=== PATIENT | female | born 1960 | race Caucasian/White ===

== ENCOUNTER 2023-02-26 13:17 | Inpatient (IN) | payer MEDICARE, OTHER ==
[2023-02-26] MEDS ORDERED: methylPREDNISolone Sodium Succinate 125 MG/2 ML SDV IVPUSH ONE (15:37)
[2023-02-26] MEDS ORDERED: Albuterol 6.7 GM Inhaler INH PRN (15:38)
[2023-02-26] MEDS: cefTRIAXone 1 GM in Sodium Chloride 0.9% 100 ML IV SCH (16:08)
[2023-02-26] MEDS: Albuterol/Ipratropium 3.0-0.5 MG/3 ML Neb Soln NEB SCH ×2 (16:18→19:59)
[2023-02-26] MEDS: Azithromycin 500 MG in Sodium Chloride 0.9% 250 ML IV SCH (16:45)
[2023-02-26] MEDS: Sodium Chloride 0.9% 10 ML Syringe FLUSH PRN ×2 (16:46→16:47)
[2023-02-26] MEDS: Formoterol/Mometasone 200-5 MCG 8.8 GM Inhaler IH SCH (17:37)
[2023-02-27] MEDS: Albuterol/Ipratropium 3.0-0.5 MG/3 ML Neb Soln NEB SCH ×6 (00:03→20:03)
[2023-02-27] MEDS: Formoterol/Mometasone 200-5 MCG 8.8 GM Inhaler IH SCH ×2 (07:00→19:13)
[2023-02-27] MEDS: Multivitamin Tab PO SCH (08:41)
[2023-02-27] MEDS: Enoxaparin 40 MG/0.4 ML Syringe SUBCUT SCH (08:42)
[2023-02-27] MEDS ORDERED: methylPREDNISolone Sodium Succinate 40 MG/1 ML SDV IVPUSH ONE (13:00)
[2023-02-27] MEDS: Sodium Chloride 0.9% 10 ML Syringe FLUSH PRN ×4 (14:15→16:40)
[2023-02-27] MEDS: cefTRIAXone 1 GM in Sodium Chloride 0.9% 100 ML IV SCH (16:05)
[2023-02-27] MEDS: Azithromycin 500 MG in Sodium Chloride 0.9% 250 ML IV SCH (16:40)
[2023-02-28] MEDS: Albuterol/Ipratropium 3.0-0.5 MG/3 ML Neb Soln NEB SCH ×6 (00:34→20:40)
[2023-02-28 07:28] LABS: ANION GAP 6.5 meq/L (7-15)
[2023-02-28] MEDS: Multivitamin Tab PO SCH (07:41)
[2023-02-28] MEDS: Formoterol/Mometasone 200-5 MCG 8.8 GM Inhaler IH SCH ×2 (07:41→19:39)
[2023-02-28] MEDS ORDERED: methylPREDNISolone Sodium Succinate 40 MG/1 ML SDV IVPUSH ONE ×2 (09:00→12:45)
[2023-02-28] MEDS: Enoxaparin 40 MG/0.4 ML Syringe SUBCUT SCH (10:11)
[2023-02-28] MEDS: Sodium Chloride 0.9% 10 ML Syringe FLUSH PRN ×3 (13:31→20:40)
[2023-02-28] MEDS: ALPRAZolam 0.25 MG Tab PO PRN (15:41)
[2023-02-28] MEDS ORDERED: Azithromycin 500 MG in Sodium Chloride 0.9% 250 ML IV SCH (19:00)
[2023-02-28] MEDS ORDERED: Azithromycin 500 MG Vial ONE (19:18)
[2023-02-28] MEDS ORDERED: cefTRIAXone 1 GM in Sodium Chloride 0.9% 100 ML IV SCH (20:00)
[2023-02-28] MEDS ORDERED: cefTRIAXone 1 GM Vial ONE (20:25)
[2023-03-01] MEDS: Albuterol/Ipratropium 3.0-0.5 MG/3 ML Neb Soln NEB SCH ×8 (03:33→23:37)
[2023-03-01] MEDS: Formoterol/Mometasone 200-5 MCG 8.8 GM Inhaler IH SCH ×2 (07:28→19:10)
[2023-03-01] MEDS: Multivitamin Tab PO SCH (07:29)
[2023-03-01 07:45] LABS: ANION GAP 10.4 meq/L (7-15)
[2023-03-01] MEDS ORDERED: predniSONE 20 MG Tab PO ONE (08:38)
[2023-03-01] MEDS ORDERED: Cefdinir 300 MG Cap PO SCH (18:00)
[2023-03-01] MEDS ORDERED: Azithromycin 250 MG Tab PO SCH (18:00)
[2023-03-02] MEDS: Albuterol/Ipratropium 3.0-0.5 MG/3 ML Neb Soln NEB SCH ×2 (03:55→07:38)
[2023-03-02] MEDS: Formoterol/Mometasone 200-5 MCG 8.8 GM Inhaler IH SCH (07:38)
[2023-03-02] MEDS: Multivitamin Tab PO SCH (07:38)
[2023-03-02] MEDS ORDERED: predniSONE 20 MG Tab PO SCH (08:00)
[2023-03-02] MEDS: ALPRAZolam 0.25 MG Tab PO PRN (11:17)
== END 2023-03-02 11:18 | disposition home or self-care (01) | DRG 189 ==
LOC: LL.MS 13:17
PROVIDERS: ADMIT Emergency Medicine; ATTEND Physician Assistant
DX: J96.22 Acute and chronic respiratory failure with hypercapnia (principal); J18.9 Pneumonia, unspecified organism; Z68.1 Body mass index [BMI] 19.9 or less, adult; C34.31 Malignant neoplasm of lower lobe, right bronchus or lung; J43.9 Emphysema, unspecified; R62.7 Adult failure to thrive; K80.20 Calculus of gallbladder without cholecystitis without obstruction; H54.7 Unspecified visual loss; F41.0 Panic disorder [episodic paroxysmal anxiety]; Z86.73 Personal history of transient ischemic attack (TIA), and cerebral infarction without residual deficits; Z79.899 Other long term (current) drug therapy; Z99.81 Dependence on supplemental oxygen
CPT/HCPCS: 36415; 71250; 80048; 85025; 86140; 94640; 97161-GP; A9270-GY; J0456; J0696; J2920; J2930; J3490; J7050; J7512; J7620-GY

== ENCOUNTER 2024-02-09 10:47 | Emergency (ER) | payer MEDICARE, OTHER ==
[2024-02-09] MEDS ORDERED: Sodium Chloride 0.9% 10 ML Syringe FLUSH PRN (10:54)
[2024-02-09 11:15] LABS: BASOPHILS ABSOLUTE AUTO 0.02 K/uL (0.00-0.20); BASOPHILS PERCENT AUTO 0.3 % (0.0-2.0); EOSINOPHILS ABSOLUTE AUTO 0.07 K/uL (0.00-0.50); EOSINOPHILS PERCENT AUTO 1.1 % (0.0-5.0); HEMATOCRIT 40.4 % (34.0-46.0); LYMPHOCYTES ABSOLUTE AUTO 1.63 K/uL (0.50-3.50); LYMPHOCYTES PERCENT AUTO 24.7 % (10.0-50.0); MEAN CORPUSCULAR HEMOGLOBIN 30.8 pg (28.2-33.3); MEAN CORPUSCULAR HGB CONC 32.2 g/dL (31.7-36.0); MEAN CORPUSCULAR VOLUME 95.7 fL (84.0-98.0); MONOCYTES ABSOLUTE AUTO 0.49 K/uL (0.00-1.00); MONOCYTES PERCENT AUTO 7.4 % (2.0-14.0); NEUTROPHILS PERCENT AUTO 66.5 % (45.0-80.0); PLATELET COUNT,PLT 272 K/uL (150-350); RED BLOOD CELL COUNT 4.22 M/uL (3.77-5.09); RED CELL DISTRIBUTION WIDTH 12.7 % (11.2-14.1); WHITE BLOOD CELL COUNT,WBC 6.6 K/uL (4.0-10.2)
[2024-02-09 11:38] LABS: PROTHROMBIN TIME 9.7 SEC (9.0-11.1)
[2024-02-09 11:44] LABS: ALBUMIN 3.8 g/dL (3.4-5.0); ANION GAP 7.8 meq/L (7-15); BILIRUBIN TOTAL 0.3 mg/dL (0.2-1.0); CALCIUM 9.2 mg/dL (8.5-10.1); CARBON DIOXIDE,CO2 30.2 mmol/L (21.0-32.0); CREATININE 0.59 mg/dL (0.51-1.17); EST CRCL DRUG DOSING (CG) 54.49 mL/min; POTASSIUM,K 4.2 mmol/L (3.5-5.1); PROTEIN TOTAL,TP 7.5 g/dL (6.4-8.2)
[2024-02-09 12:04] LABS: LIPASE 73 U/L (16-77)
[2024-02-09 12:46] LABS: CORONAVIRUS COVID-19 NAA NEGATIVE (NEGATIVE); INFLUENZA A NAA NEGATIVE (NEGATIVE); INFLUENZA B NAA NEGATIVE (NEGATIVE); RESPIRATORY SYNCYTIAL VIR NAA NEGATIVE (NEGATIVE)
[2024-02-09] MEDS: Iopamidol 755 Mg/ML 100 ML Bottle IVPUSH ONE (13:03)
[2024-02-09] MEDS: Sodium Chloride 0.9% 1,000 ML IV ONE (13:10)
[2024-02-09] MEDS: Albuterol/Ipratropium 3.0-0.5 MG/3 ML Neb Soln NEB ONE (14:20)
== END 2024-02-09 15:06 | disposition home or self-care (01) ==
LOC: LL.ED 10:47
DX: R53.1 Weakness (principal); R62.7 Adult failure to thrive; R63.4 Abnormal weight loss; J44.9 Chronic obstructive pulmonary disease, unspecified; Z79.899 Other long term (current) drug therapy
CPT/HCPCS: 0241U; 36415; 71045; 71275; 80053; 83690; 83735; 83880; 84484; 85025; 85610; 93005; 93010; 94640; 99284; 99285; J7030; J7620-GY; Q9967

== ENCOUNTER 2024-03-02 17:30 | Emergency (ER) | payer MEDICARE, OTHER ==
[2024-03-02] MEDS ORDERED: Sodium Chloride 0.9% 10 ML Syringe FLUSH PRN (17:45)
[2024-03-02 17:59] LABS: BASOPHILS ABSOLUTE AUTO 0.03 K/uL (0.00-0.20); BASOPHILS PERCENT AUTO 0.4 % (0.0-2.0); EOSINOPHILS ABSOLUTE AUTO 0.11 K/uL (0.00-0.50); EOSINOPHILS PERCENT AUTO 1.5 % (0.0-5.0); HEMATOCRIT 41.5 % (34.0-46.0); HEMOGLOBIN 13.3 g/dL (11.7-15.5); LYMPHOCYTES ABSOLUTE AUTO 2.46 K/uL (0.50-3.50); LYMPHOCYTES PERCENT AUTO 33.8 % (10.0-50.0); MEAN CORPUSCULAR HEMOGLOBIN 30.8 pg (28.2-33.3); MEAN CORPUSCULAR VOLUME 96.1 fL (84.0-98.0); MONOCYTES ABSOLUTE AUTO 0.58 K/uL (0.00-1.00); NEUTROPHILS PERCENT AUTO 56.3 % (45.0-80.0); PLATELET COUNT,PLT 291 K/uL (150-350); RED BLOOD CELL COUNT 4.32 M/uL (3.77-5.09); RED CELL DISTRIBUTION WIDTH 12.8 % (11.2-14.1); WHITE BLOOD CELL COUNT,WBC 7.3 K/uL (4.0-10.2)
[2024-03-02 18:18] LABS: PROTHROMBIN TIME 10.4 SEC (9.0-11.1)
[2024-03-02 18:24] LABS: ALANINE AMINOTRANSFERASE,ALT 32 U/L (12-78); ALBUMIN 3.9 g/dL (3.4-5.0); ALKALINE PHOSPHATASE 75 IU/L (46-116); ANION GAP 7.7 meq/L (7-15); ASPARTATE AMNIOTRANSFERASE,AST 27 U/L (15-37); BILIRUBIN TOTAL 0.3 mg/dL (0.2-1.0); BLOOD UREA NITROGEN,BUN 9 mg/dL (7-18); CALCIUM 8.7 mg/dL (8.5-10.1); CARBON DIOXIDE,CO2 30.3 mmol/L (21.0-32.0); CHLORIDE,CL 99 mmol/L (98-107); CREATININE 0.66 mg/dL (0.51-1.17); GLUCOSE RANDOM 119 mg/dL (70-99); MAGNESIUM 2.1 mg/dL (1.8-2.4); POTASSIUM,K 4.2 mmol/L (3.5-5.1); PRO B-TYPE NATRIUR PEPT,BNPPRO 44 pg/mL (0-125); PROTEIN TOTAL,TP 7.4 g/dL (6.4-8.2); SODIUM,NA 137 mmol/L (136-145)
[2024-03-02 18:25] LABS: ESTIMATED GFR 97 mL/min (>=60); ETHANOL BLOOD MEDICAL < 0.000 g/dL (0.000-0.080)
[2024-03-02 18:26] LABS: PHOSPHORUS 3.6 mg/dL (2.6-4.7); TSH ULTRASENSITIVE 2.681 mIU/mL (0.358-3.740)
[2024-03-02 18:26] LABS: AMYLASE 59 U/L (25-115); LIPASE 76 U/L (16-77)
[2024-03-02 18:42] LABS: LACTIC ACID 0.8 mmol/L (0.4-2.0)
[2024-03-02 18:43] LABS: CORONAVIRUS COVID-19 NAA NEGATIVE (NEGATIVE); INFLUENZA A NAA NEGATIVE (NEGATIVE); INFLUENZA B NAA NEGATIVE (NEGATIVE); RESPIRATORY SYNCYTIAL VIR NAA NEGATIVE (NEGATIVE)
== END 2024-03-02 19:10 ==
LOC: LL.ED 17:30
DX: J43.9 Emphysema, unspecified (principal); R91.8 Other nonspecific abnormal finding of lung field; R62.7 Adult failure to thrive; R63.4 Abnormal weight loss; Z79.51 Long term (current) use of inhaled steroids; Z86.19 Personal history of other infectious and parasitic diseases; Z86.16 Personal history of COVID-19; Z68.1 Body mass index [BMI] 19.9 or less, adult
CPT/HCPCS: 0241U; 36415; 80053; 80307; 82150; 83605; 83690; 83735; 83880; 84100; 84443; 84484; 85025; 85610; 93005; 93010; 99284; 99285

== ENCOUNTER 2024-04-19 14:13 | Emergency (ER) | payer MEDICARE, OTHER ==
[2024-04-19] MEDS ORDERED: Sodium Chloride 0.9% 10 ML Syringe FLUSH PRN (14:36)
[2024-04-19 15:06] LABS: BASOPHILS ABSOLUTE AUTO 0.02 K/uL (0.00-0.20); BASOPHILS PERCENT AUTO 0.2 % (0.0-2.0); EOSINOPHILS ABSOLUTE AUTO 0.11 K/uL (0.00-0.50); EOSINOPHILS PERCENT AUTO 1.2 % (0.0-5.0); HEMATOCRIT 41.2 % (34.0-46.0); HEMOGLOBIN 13.1 g/dL (11.7-15.5); LYMPHOCYTES ABSOLUTE AUTO 1.54 K/uL (0.50-3.50); LYMPHOCYTES PERCENT AUTO 17.1 % (10.0-50.0); MEAN CORPUSCULAR HEMOGLOBIN 30.3 pg (28.2-33.3); MEAN CORPUSCULAR HGB CONC 31.8 g/dL (31.7-36.0); MEAN CORPUSCULAR VOLUME 95.4 fL (84.0-98.0); MONOCYTES ABSOLUTE AUTO 0.62 K/uL (0.00-1.00); MONOCYTES PERCENT AUTO 6.9 % (2.0-14.0); NEUTROPHILS PERCENT AUTO 74.6 % (45.0-80.0); PLATELET COUNT,PLT 275 K/uL (150-350); RED BLOOD CELL COUNT 4.32 M/uL (3.77-5.09); RED CELL DISTRIBUTION WIDTH 12.5 % (11.2-14.1)
[2024-04-19] MEDS: Sodium Chloride 0.9% 1,000 ML IV ONE (15:25)
[2024-04-19 15:28] LABS: ALANINE AMINOTRANSFERASE,ALT 33 U/L (12-78); ALBUMIN 3.6 g/dL (3.4-5.0); ALKALINE PHOSPHATASE 84 IU/L (46-116); ASPARTATE AMNIOTRANSFERASE,AST 24 U/L (15-37); BILIRUBIN TOTAL 0.3 mg/dL (0.2-1.0); BLOOD UREA NITROGEN,BUN 7 mg/dL (7-18); CALCIUM 9.1 mg/dL (8.5-10.1); CARBON DIOXIDE,CO2 33.2 mmol/L (21.0-32.0); CHLORIDE,CL 100 mmol/L (98-107); CREATININE 0.58 mg/dL (0.51-1.17); GLUCOSE RANDOM 122 mg/dL (70-99); POTASSIUM,K 4.4 mmol/L (3.5-5.1); PROTEIN TOTAL,TP 7.2 g/dL (6.4-8.2); SODIUM,NA 138 mmol/L (136-145)
[2024-04-19 15:29] LABS: ANION GAP 9.2 meq/L (7-15); ESTIMATED GFR 100 mL/min (>=60)
[2024-04-19 15:29] LABS: APPEARANCE,URINE CLEAR; BILIRUBIN,URINE NEGATIVE (NEGATIVE); COLOR,URINE YELLOW; GLUCOSE,URINE NEGATIVE (NEGATIVE); KETONES,URINE NEGATIVE (NEGATIVE); LEUKOCYTE ESTERASE,URINE NEGATIVE (NEGATIVE); NITRITE,URINE NEGATIVE (NEGATIVE); OCCULT BLOOD,URINE NEGATIVE (NEGATIVE); PROTEIN,URINE NEGATIVE (NEGATIVE); UROBILINOGEN,URINE 0.2 E.U./dL (0.2-1.0)
== END 2024-04-19 17:00 | disposition home or self-care (01) ==
LOC: LL.ED 14:13
DX: R53.83 Other fatigue (principal); J44.9 Chronic obstructive pulmonary disease, unspecified; Z79.899 Other long term (current) drug therapy; Z86.16 Personal history of COVID-19; Z79.51 Long term (current) use of inhaled steroids
CPT/HCPCS: 36415; 71046; 80053; 81003; 85025; 96360; 99284; 99285-25; J7030

== ENCOUNTER 2024-12-23 15:14 | Observation (INO) | payer MEDICARE, OTHER ==
[2024-12-23 15:52] LABS: BASOPHILS ABSOLUTE AUTO 0.02 K/uL (0.00-0.20); BASOPHILS PERCENT AUTO 0.1 % (0.0-2.0); EOSINOPHILS ABSOLUTE AUTO 0.07 K/uL (0.00-0.50); EOSINOPHILS PERCENT AUTO 0.4 % (0.0-5.0); HEMATOCRIT 41.8 % (34.0-46.0); HEMOGLOBIN 13.4 g/dL (11.7-15.5); IMMATURE GRAN ABSOLUTE AUTO 0.05 10^3/uL (0.00-0.04); IMMATURE GRAN PERCENT AUTO 0.3 % (0.0-0.4); LYMPHOCYTES ABSOLUTE AUTO 1.99 K/uL (0.50-3.50); LYMPHOCYTES PERCENT AUTO 12.6 % (10.0-50.0); MEAN CORPUSCULAR HEMOGLOBIN 30.7 pg (28.2-33.3); MEAN CORPUSCULAR HGB CONC 32.1 g/dL (31.7-36.0); MEAN CORPUSCULAR VOLUME 95.7 fL (84.0-98.0); MONOCYTES ABSOLUTE AUTO 0.58 K/uL (0.00-1.00); MONOCYTES PERCENT AUTO 3.7 % (2.0-14.0); NEUTROPHILS ABSOLUTE AUTO 13.04 K/uL (1.40-7.00); NEUTROPHILS PERCENT AUTO 82.9 % (45.0-80.0); PLATELET COUNT,PLT 302 K/uL (150-350); RED BLOOD CELL COUNT 4.37 M/uL (3.77-5.09); RED CELL DISTRIBUTION WIDTH 12.1 % (11.2-14.1); WHITE BLOOD CELL COUNT,WBC 15.8 K/uL (4.0-10.2)
[2024-12-23 16:08] LABS: PROTHROMBIN TIME 10.2 SEC (9.0-11.1)
[2024-12-23] MEDS: Lactated Ringers 1,000 ML IV ONE (16:21)
[2024-12-23 16:26] LABS: ALANINE AMINOTRANSFERASE,ALT 30 U/L (12-78); ALBUMIN 3.8 g/dL (3.4-5.0); ALKALINE PHOSPHATASE 71 IU/L (46-116); ANION GAP 6.5 meq/L (7-15); ASPARTATE AMNIOTRANSFERASE,AST 29 U/L (15-37); BILIRUBIN TOTAL 0.3 mg/dL (0.2-1.0); BLOOD UREA NITROGEN,BUN 11 mg/dL (7-18); CALCIUM 8.5 mg/dL (8.5-10.1); CARBON DIOXIDE,CO2 31.5 mmol/L (21.0-32.0); CHLORIDE,CL 100 mmol/L (98-107); CREATININE 0.61 mg/dL (0.51-1.17); GLUCOSE RANDOM 149 mg/dL (70-99); MAGNESIUM 1.8 mg/dL (1.8-2.4); POTASSIUM,K 4.5 mmol/L (3.5-5.1); PRO B-TYPE NATRIUR PEPT,BNPPRO 44 pg/mL (0-125); PROTEIN TOTAL,TP 7.2 g/dL (6.4-8.2); SODIUM,NA 138 mmol/L (136-145)
[2024-12-23 16:29] LABS: ESTIMATED GFR 99 mL/min (>=60)
[2024-12-23] MEDS: LORazepam 2 MG/ML SDV IVPUSH ONE ×2 (16:30→16:33)
[2024-12-23] MEDS: Sodium Chloride 0.9% 10 ML Syringe FLUSH PRN (16:41)
[2024-12-23] MEDS: Albuterol/Ipratropium 3.0-0.5 MG/3 ML Neb Soln NEB ONE ×2 (17:00→17:55)
[2024-12-23] MEDS: Albuterol/Ipratropium 3.0-0.5 MG/3 ML Neb Soln ONE ×2 (17:06→18:31)
[2024-12-23] MEDS: Iopamidol 755 Mg/ML 100 ML Bottle IVPUSH ONE (18:34)
[2024-12-23] MEDS ORDERED: Albuterol 6.7 GM Inhaler INH PRN (21:47)
[2024-12-23] MEDS: Albuterol/Ipratropium 3.0-0.5 MG/3 ML Neb Soln INH PRN (23:59)
[2024-12-24] MEDS: ALPRAZolam 0.25 MG Tab PO PRN (00:37)
[2024-12-24] MEDS: guaiFENesin 600 MG Tab.ER PO ONE (00:50)
[2024-12-24 07:56] LABS: BASOPHILS ABSOLUTE AUTO 0.01 K/uL (0.00-0.20); BASOPHILS PERCENT AUTO 0.1 % (0.0-2.0); EOSINOPHILS ABSOLUTE AUTO 0.11 K/uL (0.00-0.50); EOSINOPHILS PERCENT AUTO 1.4 % (0.0-5.0); HEMATOCRIT 38.2 % (34.0-46.0); HEMOGLOBIN 12.3 g/dL (11.7-15.5); IMMATURE GRAN ABSOLUTE AUTO 0.01 10^3/uL (0.00-0.04); IMMATURE GRAN PERCENT AUTO 0.1 % (0.0-0.4); LYMPHOCYTES ABSOLUTE AUTO 1.64 K/uL (0.50-3.50); LYMPHOCYTES PERCENT AUTO 20.6 % (10.0-50.0); MEAN CORPUSCULAR HEMOGLOBIN 30.4 pg (28.2-33.3); MEAN CORPUSCULAR HGB CONC 32.2 g/dL (31.7-36.0); MEAN CORPUSCULAR VOLUME 94.3 fL (84.0-98.0); MONOCYTES ABSOLUTE AUTO 0.66 K/uL (0.00-1.00); MONOCYTES PERCENT AUTO 8.3 % (2.0-14.0); NEUTROPHILS ABSOLUTE AUTO 5.54 K/uL (1.40-7.00); NEUTROPHILS PERCENT AUTO 69.5 % (45.0-80.0); PLATELET COUNT,PLT 247 K/uL (150-350); RED BLOOD CELL COUNT 4.05 M/uL (3.77-5.09)
[2024-12-24] MEDS ORDERED: Formoterol/Mometasone 200-5 MCG 8.8 GM Inhaler INH SCH (08:00)
[2024-12-24 08:33] LABS: ALBUMIN 3.5 g/dL (3.4-5.0); BILIRUBIN TOTAL 0.5 mg/dL (0.2-1.0); CALCIUM 8.3 mg/dL (8.5-10.1); CARBON DIOXIDE,CO2 33.5 mmol/L (21.0-32.0); CREATININE 0.57 mg/dL (0.51-1.17); EST CRCL DRUG DOSING (CG) 49.32 mL/min; POTASSIUM,K 4.1 mmol/L (3.5-5.1); PROTEIN TOTAL,TP 6.5 g/dL (6.4-8.2)
[2024-12-24 08:35] LABS: ANION GAP 6.6 meq/L (7-15)
== END 2024-12-24 12:26 | disposition home or self-care (01) ==
LOC: LL.ED 15:14 → LL.MS 19:39 → UNDOADMOB 19:54
PROVIDERS: ADMIT Physician Assistant; ATTEND Physician Assistant
DX: J43.9 Emphysema, unspecified (principal); F41.9 Anxiety disorder, unspecified; Z79.899 Other long term (current) drug therapy
CPT/HCPCS: 36415; 71045; 71275; 80053; 83735; 83880; 84484; 85025; 85610; 87428-QW; 93005; 93010; 94640; 96374; 99223; 99239; 99285-25; A9270-GY; J2060; J7120; J7620-GY; Q9967